=== PATIENT | female | born 2000 | race African-American/Black ===

== ENCOUNTER 2019-11-14 22:05 | Emergency (ER) | payer SELFPAY ==
[~2019-11-14] VITALS: Ht 160 cm; Wt 78.0 kg
[2019-11-14] MEDS ORDERED: IBUPROFEN 600MG TABLET PO ONE (23:30)
[2019-11-14 23:45] VITALS: BP 123/70
== END 2019-11-15 01:30 | disposition home or self-care (01) ==
LOC: ER 22:05
DX: S93.401A Sprain of unspecified ligament of right ankle, initial encounter (principal); V49.88XA Car occupant (driver) (passenger) injured in other specified transport accidents, initial encounter; Y93.89 Activity, other specified; Y92.89 Other specified places as the place of occurrence of the external cause; Y99.8 Other external cause status
CPT/HCPCS: 73562; 73610; 99284; Z7610